=== PATIENT | male | born 1965 | race Caucasian/White ===

== ENCOUNTER 2017-09-04 13:47 | Observation (INO) | payer BC ==
[2017-09-04] MEDS ORDERED: ASPIRIN 81 MG PO STA (14:14)
[2017-09-04] MEDS ORDERED: NITROGLYCERIN OINT 1 INCH/GM PACKET TOPICAL STA (14:14)
--- NOTE | 2017-09-04 14:17 | ED ---
Chest Pain HPI - General Chief Complaint: Chest Pain Stated Complaint: Chest Pain Time Seen by Provider: 09/04/17 14:07 Source: patient Mode of arrival: wheelchair Limitations: no limitations - History of Present Illness Initial Comments: 1-year-old white male presents with a complaint of some midsternal chest pain which is described as a burning which is nonradiating. He states that it initially started 2-3 weeks ago. It is been intermittent and comes on with exertion and is better with rest. He denies any previous cardiac problems. He is had occasional palpitations. He will have occasional shortness of breath associated with the chest pain. He denies any leg pain or swelling. He denies any history of DVT or PE. His last stress test was approximate 6 years ago. His last echocardiogram was approximately 2 years ago and he states that he has a leaky valve. He denies any other complaints or modifying factors. He states that he quit smoking approximately 2 weeks ago when this came on. He also complains of some anxiety as his father 3 weeks ago. He does not take anything at home for anxiety. He also relates a strong family history of cardiac disease with his grandfather having a myocardial infarction before the age of 55. - Related Data Home Medications Medication Instructions Recorded Confirmed Lisinopril [Zestril] 10 mg PO DAILY 03/04/16 09/04/17 Allergies Allergy/AdvReac Type Severity Reaction Status Date / Time No Known Allergies Allergy Verified 09/04/17 14:44 Review of Systems ROS Statement: Those systems with pertinent positive or pertinent negative responses have been documented in the HPI. ROS Other: All systems not noted in ROS Statement are negative. Past Medical History Past Medical History: Hypertension History of Any Multi-Drug Resistant Organisms: None Reported Past Surgical History: Orthopedic Surgery Additional Past Surgical History / Comment(s): Left knee surgery; Oral surgery Past Psychological History: No Psychological Hx Reported Smoking Status: Current every day smoker Past Alcohol Use History: Occasional Past Drug Use History: None Reported General Exam - General Exam Comments Initial Comments: GENERAL: The patient is well nourished and well hydrated. VITAL SIGNS: Heart rate, blood pressure, respiratory rate reviewed as recorded in nurse's notes. EYES: Pupils are round and reactive. Extraocular movements are intact. No conjunctival / lid redness or swelling. ENT: No external evidence of injury, swelling, or ecchymosis. Airway is patent. Throat is clear. NECK: Nontender. No swelling or evidence of injury. No subcutaneous emphysema. Trachea is midline. No thyroid mass. HEART: Regular rate and rhythm. Good peripheral pulses. LUNGS/CHEST: Breath sounds clear and equal bilaterally. No rales, rhonchi, or wheezes. No ecchymosis, subcutaneous emphysema, or tenderness. ABDOMEN: Abdomen soft without tenderness. No palpable masses or organomegaly. No peritoneal signs. No abdominal wall swelling or ecchymosis. EXTREMITIES: No extremity tenderness. Normal muscle tone and function. No thoracolumbar tenderness. NEUROLOGIC: Sensation is grossly intact. Cranial nerve exam reveals face is symmetrical, tongue is midline, speech is clear. SKIN: No abrasions or ecchymosis is noted. No induration or masses noted. PSYCHIATRIC: Alert and oriented. Appropriate behavior and judgment. Limitations: no limitations Course Vital Signs 09/04/17 14:02 Temperature 98.5 F Pulse Rate 73 Respiratory 16 Rate Blood Pressure 156/96 O2 Sat by Pulse 99 Oximetry Chest Pain [facility] - MDM The patient was seen and examined. All diagnostics are reviewed. He does receive an aspirin as well as some Nitropaste. The EKG is done and shows a normal sinus rhythm at a rate of 67. There is no acute ST-T wave changes noted. The NM intervals 146, QRS duration is 86, and the QTC intervals 450. The chest x-ray does not show any acute abnormalities. The cardiac profile labs is all within normal limits. He is not having any chest pain on recheck. It is felt as though he would benefit from admission to the hospital for further treatment. He is agreeable with this plan. He does request something for anxiety and is given 0.5 mg of Xanax. Case will be discussed with Dr. Bueno in the near future. Disposition Clinical Impression: Unstable angina pectoris, Chest pain, Hypertension, Anxiety Disposition: ADMITTED IP TO THIS HOSP Condition: Fair Is patient prescribed a controlled substance at d/c from ED?: No Time of Disposition: 15:32 Decision Date: 09/04/17 Decision Time: 15:32
[2017-09-04 14:45] LABS: Basophils # (A) 0.1 k/uL (0-0.2); Basophils % (A) 1 %; Eosinophils # (A) 0.3 k/uL (0-0.7); Eosinophils % (A) 3 %; HCT 43.8 % (39.0-53.0); Lymphocytes % (A) 21 %; MCH 29.8 pg (25.0-35.0); MCHC 34.2 g/dL (31.0-37.0); MCV 87.1 fL (80.0-100.0); Mean Platelet Volume 7.2; Monocytes # (A) 0.5 k/uL (0-1.0); Monocytes % (A) 5 %; Neutrophils # (A) 6.6 k/uL (1.3-7.7); Neutrophils % (A) 69 %; Platelet Count 253 k/uL (150-450); RBC 5.03 m/uL (4.30-5.90); RDW 13.2 % (11.5-15.5); WBC 9.5 k/uL (3.8-10.6)
[2017-09-04 14:58] LABS: ALT 58 U/L (21-72); AST 28 U/L (17-59); Albumin 4.8 g/dL (3.5-5.0); Alkaline Phosphatase 67 U/L (38-126); Anion Gap 12 mmol/L; Blood Urea Nitrogen 13 mg/dL (9-20); Carbon Dioxide 24 mmol/L (22-30); Chloride 103 mmol/L (98-107); Glucose 99 mg/dL (74-99); Magnesium 1.9 mg/dL (1.6-2.3); Potassium 4.5 mmol/L (3.5-5.1); Sodium 139 mmol/L (137-145); Total Bilirubin 0.6 mg/dL (0.2-1.3); Total Protein 7.6 g/dL (6.3-8.2)
[2017-09-04 15:01] LABS: Partial Thromboplastin Time 22.8 sec (22.0-30.0); Prothrombin Time 9.8 sec (9.0-12.0)
[2017-09-04 15:04] LABS: Creatine Kinase 63 U/L (55-170)
[2017-09-04 15:17] LABS: Creatine Kinase MB 0.6 ng/mL (0.0-2.4); Troponin I <0.012 ng/mL (0.000-0.034)
--- NOTE | 2017-09-04 15:17 | XR ---
EXAMINATION TYPE: XR chest 2V DATE OF EXAM: 09/04/2017 COMPARISON: NONE INDICATION: Chest pain TECHNIQUE: Frontal and lateral views of the chest are obtained. FINDINGS: The heart size is normal. The pulmonary vasculature is normal. The lungs are clear. Old left rib fractures evident. IMPRESSION: 1. No acute pulmonary process.
[2017-09-04] MEDS ORDERED: ALPRAZolam 0.5 MG TAB PO STA (15:30)
[2017-09-04] MEDS ORDERED: NITROGLYCERIN SL TABS 0.4 MG TAB SUBLINGUAL PRN (15:32)
[2017-09-04] MEDS ORDERED: ALPRAZolam 0.25 MG TAB PO PRN (15:32)
[2017-09-04 16:54] VITALS: BMI 28.1
[2017-09-04] MEDS: NITROGLYCERIN OINT 1 INCH/GM PACKET TOPICAL SCH ×2 (18:52→23:06)
[2017-09-04 20:55] LABS: Creatine Kinase 44 U/L (55-170)
[2017-09-04] MEDS ORDERED: METOPROLOL TARTRATE 25 MG TAB PO SCH (21:00)
[2017-09-04 21:08] LABS: Creatine Kinase MB 0.3 ng/mL (0.0-2.4); Troponin I <0.012 ng/mL (0.000-0.034)
[2017-09-05 03:01] LABS: Cholesterol 197 mg/dL (<200); HDL Cholesterol 34 mg/dL (40-60); LDL Cholesterol,Calculated 116 mg/dL (0-99); Triglycerides 234 mg/dL (<150)
[2017-09-05 03:24] LABS: Creatine Kinase 41 U/L (55-170)
[2017-09-05 03:38] LABS: Creatine Kinase MB 0.3 ng/mL (0.0-2.4); Troponin I <0.012 ng/mL (0.000-0.034)
[2017-09-05 08:10] VITALS: RESP 18
[2017-09-05] MEDS ORDERED: ENOXAPARIN 40 MG/0.4 ML SYRINGE SQ SCH (09:00)
[2017-09-05] MEDS ORDERED: LISINOPRIL 10 MG TAB PO SCH (09:00)
[2017-09-05] MEDS ORDERED: ASPIRIN 325 MG TAB PO SCH (09:00)
[2017-09-05] MEDS ORDERED: ASPIRIN 81 MG PO SCH (09:00)
--- NOTE | 2017-09-05 12:07 | P.HPIM ---
History of Present Illness 50-year-old male presented in the emergency room with complaints of chest discomfort. 2 weeks ago's stated he was chopping wood developed some chest pressure that was relieved with rest. Family history of coronary disease with sudden of his father recently. Patient states chest pain was burning in sensation nonradiating no nausea or diaphoresis. Troponins up a negative 3. Review of Systems Cardiovascular: Reports chest pain Neurological: Reports vertigo Past Medical History Past Medical History: Hypertension History of Any Multi-Drug Resistant Organisms: None Reported Past Surgical History: Orthopedic Surgery Additional Past Surgical History / Comment(s): Left and right knee surgery; Oral surgery Past Anesthesia/Blood Transfusion Reactions: No Reported Reaction Past Psychological History: No Psychological Hx Reported Additional Psychological History / Comment(s): anxiety from father passing away Smoking Status: Former smoker Past Alcohol Use History: Occasional Additional Past Alcohol Use History / Comment(s): pt quit smoking 2-3 weeks ago Past Drug Use History: None Reported Medications and Allergies Home Medications Medication Instructions Recorded Confirmed Type Lisinopril [Zestril] 10 mg PO DAILY 03/04/16 09/04/17 History Allergies Allergy/AdvReac Type Severity Reaction Status Date / Time No Known Allergies Allergy Verified 09/04/17 14:44 Physical Exam Vitals: Vital Signs Temp Pulse Pulse Pulse Resp BP BP 09/05/17 08:00 97.5 F L 67 18 98/56 09/05/17 04:00 97.0 F L 75 16 110/61 09/05/17 00:00 97.7 F 60 18 130/67 09/04/17 20:00 97.5 F L 67 135/73 09/04/17 19:36 18 09/04/17 16:24 98.2 F 54 L 18 140/75 09/04/17 16:00 54 L 18 09/04/17 15:50 72 16 151/93 09/04/17 15:00 64 16 155/91 09/04/17 14:02 98.5 F 73 16 156/96 Pulse Ox 09/05/17 08:00 97 09/05/17 04:00 97 09/05/17 00:00 97 09/04/17 20:00 96 09/04/17 19:36 09/04/17 16:24 96 09/04/17 16:00 09/04/17 15:50 97 09/04/17 15:00 99 09/04/17 14:02 99 Intake and Output 09/04/17 09/05/17 09/05/17 22:59 06:59 14:59 Intake Total 400 Balance 400 Intake: Oral 400 Other: Voiding Method Toilet Toilet Toilet # Voids 1 1 Weight 94.1 kg 93.894 kg - Constitutional General appearance: obese - EENT Eyes: PERRLA Ears: bilateral: normal - Neck Neck: normal ROM - Respiratory Respiratory: bilateral: CTA - Cardiovascular Rhythm: regular Abnormal Heart Sounds: systolic murmur - Gastrointestinal General gastrointestinal: soft - Integumentary Integumentary: normal - Neurologic Neurologic: CNII-XII intact - Musculoskeletal Musculoskeletal: gait normal - Psychiatric Psychiatric: A&O x's 3, appropriate affect Results CBC & Chem 7: 09/04/17 14:30 09/04/17 14:30 Labs: Abnormal Lab Results - Last 24 Hours (Table) 09/04/17 09/05/17 09/05/17 Range/Units 20:22 02:23 02:23 Total Creatine Kinase 44 L 41 L (55-170) U/L Triglycerides 234 H (<150) mg/dL LDL Cholesterol, Calc 116 H (0-99) mg/dL HDL Cholesterol 34 L (40-60) mg/dL Chest x-ray: report reviewed Thrombosis Risk Factor Assmnt - Choose All That Apply Any of the Below Risk Factors Present?: Yes Each Factor Represents 1 point: Age 41-60 years, Obesity (BMI >25) Other Risk Factors: No Thrombosis Risk Factor Assessment Total Risk Factor Score: 2 Thrombosis Risk Factor Assessment Level: Low Risk Assessment and Plan Assessment: Assessment Unstable angina chest pain troponins negative 3 Hypertension Anxiety disorder Plan Awaiting results from stress test and echo Continue consultation with cardiology
--- NOTE | 2017-09-05 12:10 | P.CRDCN ---
History of Present Illness History of present illness: Mr. Aguila male past medical history significant for hypertension and vasovagal syncope. He also has a history of chronic nicotine dependence and he quit 2 weeks ago. He denies history of coronary artery disease. He states he had symptoms of dizziness approximately 17 years ago and was worked up by market risk analyst at [facility] and was determined to have vasovagal syncope. He did undergo stress testing at that time which he states was normal. We've been asked to see him in consultation for complaints of chest pain. He states 2 weeks ago he had an episode of tightness in the mid-sternal region with shortness of breath and dizziness that lasted approximately 15 minutes. The symptoms started when he was exerting himself and seemed to subside with rest. Since then he has felt increasingly dizzy with mild exertion. Denies palpitations, nausea, vomiting, diaphoresis or any further symptoms of chest pain or shortness of breath. At the time of my exam he is seen up and ambulating around the room in no acute distress. He denies symptoms of chest pain, dizziness, nausea, vomiting, palpitations or shortness of breath. EKG on arrival reveals sinus mechanism with no acute ST or T-wave abnormalities. Chest x-ray is negative for an acute cardiopulmonary process. Laboratory data reviewed, hemoglobin 15.0, platelets 253, sodium 139, potassium 4.5, creatinine 0.8, magnesium 1.9, cardiac enzymes negative 3, LDL 116, HDL 34 , triglycerides 234 and total cholesterol 197. Current medications include lisinopril 10 mg daily. Review of Systems At the time of my exam: CONSTITUTIONAL: Denies fever. Denies chills. EYES: Denies blurred vision. Denies vision changes. Denies eye pain. EARS, NOSE, MOUTH & THROAT: Denies headache. Denies sore throat. Denies ear pain. CARDIOVASCULAR: Denies chest pain. Denies shortness of breath. Denies orthopnea. Denies PND. Denies palpitations. RESPIRATORY: Denies cough. GASTROINTESTINAL: Denies abdominal pain. Denies diarrhea. Denies constipation. Denies nausea. Denies vomiting. MUSCULOSKELETAL: Denies myalgias. INTEGUMENTARY: Denies pruitis. Denies rash. NEUROLOGIC: Denies numbness. Denies tingling. Denies weakness. PSYCHIATRIC: Denies anxiety. Denies depression. ENDOCRINE: Denies fatigue. Denies weight change. Denies polydipsia. Denies polyurina. GENITOURINARY: Denies burning, hematuria or urgency with micturation. HEMATOLOGIC: Denies history of anemia. Denies bleeding. Past Medical History Past Medical History: Hypertension History of Any Multi-Drug Resistant Organisms: None Reported Past Surgical History: Orthopedic Surgery Additional Past Surgical History / Comment(s): Left and right knee surgery; Oral surgery Past Anesthesia/Blood Transfusion Reactions: No Reported Reaction Past Psychological History: No Psychological Hx Reported Additional Psychological History / Comment(s): anxiety from father passing away Smoking Status: Former smoker Past Alcohol Use History: Occasional Additional Past Alcohol Use History / Comment(s): pt quit smoking 2-3 weeks ago Past Drug Use History: None Reported Medications and Allergies Home Medications Medication Instructions Recorded Confirmed Type Lisinopril [Zestril] 10 mg PO DAILY 03/04/16 09/04/17 History Allergies Allergy/AdvReac Type Severity Reaction Status Date / Time No Known Allergies Allergy Verified 09/04/17 14:44 Physical Exam Vitals: Vital Signs Temp Pulse Pulse Pulse Resp BP BP 09/05/17 08:00 97.5 F L 67 18 98/56 09/05/17 04:00 97.0 F L 75 16 110/61 09/05/17 00:00 97.7 F 60 18 130/67 09/04/17 20:00 97.5 F L 67 135/73 09/04/17 19:36 18 09/04/17 16:24 98.2 F 54 L 18 140/75 09/04/17 16:00 54 L 18 09/04/17 15:50 72 16 151/93 09/04/17 15:00 64 16 155/91 09/04/17 14:02 98.5 F 73 16 156/96 Pulse Ox 09/05/17 08:00 97 09/05/17 04:00 97 09/05/17 00:00 97 09/04/17 20:00 96 09/04/17 19:36 09/04/17 16:24 96 09/04/17 16:00 09/04/17 15:50 97 09/04/17 15:00 99 09/04/17 14:02 99 Intake and Output 09/04/17 09/05/17 09/05/17 22:59 06:59 14:59 Intake Total 400 Balance 400 Intake: Oral 400 Other: Voiding Method Toilet Toilet # Voids 1 1 Weight 94.1 kg Blood pressure 98/56 heart rate 67 afebrile maintaining oxygen saturation on room air GENERAL: This is a 51-year-old male in no apparent distress at the time of my examination. HEENT: Head is atraumatic, normocephalic. Pupils are equal, round. Sclerae anicteric. Conjunctivae are clear. Mucous membranes of the mouth are moist. Neck is supple. There is no jugular venous distention. No carotid bruit is heard. LUNGS: Clear to auscultation no wheezes, rales or rhonchi. No chest wall tenderness is noted on palpation or with deep breathing. HEART: Regular rate and rhythm without murmurs, rubs or gallops. S1 and S2 heard. ABDOMEN: Soft, nontender. Bowel sounds are heard. No organomegaly noted. EXTREMITIES: No evidence of peripheral edema and no calf tenderness noted. VASCULAR: Radial and dorsalis pedis pulses palpated, no evidence of clubbing. NEUROLOGIC: Patient is awake, alert and oriented x3. Results 09/04/17 14:30 09/04/17 14:30 Cardiac Enzymes 09/04/17 09/04/17 09/04/17 Range/Units 14:30 14:30 20:22 AST 28 (17-59) U/L CK-MB (CK-2) 0.6 0.3 (0.0-2.4) ng/mL Troponin I <0.012 <0.012 (0.000-0.034) ng/mL 09/05/17 Range/Units 02:23 AST (17-59) U/L CK-MB (CK-2) 0.3 (0.0-2.4) ng/mL Troponin I <0.012 (0.000-0.034) ng/mL Coagulation 09/04/17 Range/Units 14:30 PT 9.8 (9.0-12.0) sec APTT 22.8 (22.0-30.0) sec Lipids 09/05/17 Range/Units 02:23 Triglycerides 234 H (<150) mg/dL Cholesterol 197 (<200) mg/dL HDL Cholesterol 34 L (40-60) mg/dL CBC 09/04/17 Range/Units 14:30 WBC 9.5 (3.8-10.6) k/uL RBC 5.03 (4.30-5.90) m/uL Hgb 15.0 (13.0-17.5) gm/dL Hct 43.8 (39.0-53.0) % Plt Count 253 (150-450) k/uL Comprehensive Metabolic Panel 09/04/17 Range/Units 14:30 Sodium 139 (137-145) mmol/L Potassium 4.5 (3.5-5.1) mmol/L Chloride 103 (98-107) mmol/L Carbon Dioxide 24 (22-30) mmol/L BUN 13 (9-20) mg/dL Creatinine 0.80 (0.66-1.25) mg/dL Glucose 99 (74-99) mg/dL Calcium 10.0 (8.4-10.2) mg/dL AST 28 (17-59) U/L ALT 58 (21-72) U/L Alkaline Phosphatase 67 (38-126) U/L Total Protein 7.6 (6.3-8.2) g/dL Albumin 4.8 (3.5-5.0) g/dL Current Medications Generic Name Dose Route Start Last Admin Trade Name Freq PRN Reason Stop Dose Admin Alprazolam 0.25 mg 09/04/17 15:32 09/04/17 19:47 Xanax PO 0.25 mg QID PRN Administration Anxiety Aspirin 81 mg 09/05/17 09:00 Aspirin PO DAILY [facility] Enoxaparin Sodium 40 mg 09/05/17 09:00 Lovenox SQ DAILY MODE Lisinopril 10 mg 09/05/17 09:00 Zestril PO DAILY MODE Nitroglycerin 1 inch 09/04/17 18:00 09/04/17 23:06 Nitro-Bid Oint TOPICAL Not Given Q6HR MODE Nitroglycerin 0.4 mg 09/04/17 15:32 Nitrostat SUBLINGUAL Q5M PRN Chest Pain Intake and Output 09/04/17 09/05/17 09/05/17 22:59 06:59 14:59 Intake Total 400 Balance 400 Intake: Oral 400 Other: Voiding Method Toilet Toilet # Voids 1 1 Weight 94.1 kg 09/04/17 14:30 09/04/17 14:30 Assessment and Plan Assessment: ASSESSMENT 1. Chest pain, atypical. An acute coronary event has been ruled out with no EKG evidence of ischemia and normal cardiac enzymes. 2. Hypertension 3. Dyslipidemia 4. Chronic nicotine dependence PLAN Obtain 2-D echocardiogram and Doppler study to assess cardiac structure and function. Perform stress echocardiogram to assess for stress induced cardiac ischemia. Add atorvastatin 40 mg daily and aspirin 81 mg daily to his regimen. He feels as though he is intolerant to lisinopril and has had frequent palpitations since starting over a year ago. I will change him to lorsartan 25 mg daily. Follow-up liver enzymes in 2-3 weeks. Smoking cessation recommended, he states he quit smoking 2 weeks ago after having his initial symptoms of chest discomfort. Lifestyle modifications for weight loss and lowering of cholesterol. If stress test is normal he is stable from a cardiac perspective. Follow-up with Dr. Worthington in 2-3 weeks. Thank you kindly for this consultation. Nurse Practitioner note has been reviewed, I agree with a documented findings and plan of care. Patient was seen and examined.
[2017-09-05 12:13] VITALS: BP 100/59; PULSE 77; TEMP 98
[2017-09-05] MEDS ORDERED: ATORVASTATIN 40 MG TAB PO SCH (12:15)
[2017-09-05] MEDS: NITROGLYCERIN OINT 1 INCH/GM PACKET TOPICAL SCH (12:40)
--- NOTE | 2017-09-05 13:25 | P.STRESS ---
- Stress Test Note Stress Test Results/Findings: Exam Performed: stress echo exercise Exam Date: 09/05/17 Reason for Exam: CHEST PAIN Height: 6 ft Weight: 93.894 kg Protocol: MAURICIO Stage: 3 Duration of Exercise: 9:00 Resting Heart Rate: 64 Resting Blood Pressure: 107/50 Maximum Achieved Heart Rate: 145 Maximum Achieved Blood Pressure: 171/75 85% PMHR: 142 100% PMHR: 167 METS: 10.3 Technologist Comment: Stress Test Results/Findings: This is a 51-year-old gentleman with history of hypertension and smoking being evaluated for symptoms of chest pain or shortness of breath and also palpitations. Stress data: Baseline EKG showed sinus rhythm with normal MO interval, QRS duration. Blood pressure at rest his hand several 50 with pulse rate of 64. Patient walked on the Mauricio protocol for 9 minutes achieving a max moderate of 145 with blood pressure 170/75. EKGs taken during and after the x-ray did not reveal any significant changes from the baseline. Echo data: Baseline echo images show normal wall motion and thickening. Exercise echo images showed normal augmentation of wall motion and thickening in all segments. Final impression: #1. Negative stress test #2. Negative stress echo.
--- NOTE | 2017-09-05 14:33 | P.DS ---
Providers Date of admission: 09/04/17 15:33 Expected date of discharge: 09/05/17 Attending physician: Beto Bueno Consults: 09/04/17 15:33 Consult Physician Urgent Consulting Provider: Jose Wadsworth Consult Reason/Comments: cp Do you want consulting provider notified?: Yes Primary care physician: Beto Bueno [facility] Course: 51-year-old males of the to the emergency room with complaints of chest pain. Patient was evaluated by cardiology sent to have negative echo negative stress test. Patient is be discharge to follow up with family physician Dr. Beto Bueno and cardiology. Troponins negative times three Assessment chest pain troponins negative times three data stress tests hypertension anxiety disorder Plan up with family physician and cardiology Patient Condition at Discharge: Fair Plan - Discharge Summary Discharge Rx Participant: Yes New Discharge Prescriptions: New Aspirin 81 mg PO DAILY chew Atorvastatin [Lipitor] 40 mg PO DAILY #30 tab Losartan [Cozaar] 25 mg PO DAILY #30 tab Discontinued Lisinopril [Zestril] 10 mg PO DAILY Discharge Medication List Aspirin 81 mg PO DAILY chew 09/05/17 [Rx] Atorvastatin [Lipitor] 40 mg PO DAILY #30 tab 09/05/17 [Rx] Losartan [Cozaar] 25 mg PO DAILY #30 tab 09/05/17 [Rx] Follow up Appointment(s)/Referral(s): Carey Worthington MD [STAFF PHYSICIAN] - 2 Weeks (Office will call patient at home. ) Ambulatory/Diagnostic Orders: ALT [LAB.AMB] Location: Determined By Patient AST [LAB.AMB] Location: Determined By Patient
[2017-09-06] MEDS ORDERED: LOSARTAN 25 MG TAB PO SCH (09:00)
--- NOTE | 2017-09-06 14:00 | ECHOF ---
Referral Reason:cp MEASUREMENTS -------- HEIGHT: 182.9 cm WEIGHT: 93.9 kg BP: 110/61 RVIDd: 3.2 cm (< 3.3) IVSd: 1.3 cm (0.6 - 1.1) LVIDd: 4.0 cm (3.9 - 5.3) LVPWd: 1.2 cm (0.6 - 1.1) IVSs: 1.5 cm LVIDs: 3.0 cm LVPWs: 1.6 cm LA Diam: 3.6 cm (2.7 - 3.8) LAESV Index (A-L): 31.14 ml/m Ao Diam: 3.2 cm (2.0 - 3.7) AV Cusp: 2.1 cm (1.5 - 2.6) LA Diam: 4.2 cm (2.7 - 3.8) MV EXCURSION: 24.208 mm (> 18.000) MV EF SLOPE: 107 mm/s (70 - 150) EPSS: 0.3 cm MV E Napoleon: 0.66 m/s MV DecT: 164 ms MV A Napoleon: 0.56 m/s MV E/A Ratio: 1.17 RAP: 5.00 mmHg RVSP: 24.97 mmHg FINDINGS -------- Sinus rhythm. This was a technically good study. The left ventricular size is normal. There is mild concentric left ventricular hypertrophy. Overa ll left ventricular systolic function is low-normal with, an EF between 50 - 55 %. The right ventricle is normal in size. The left atrial size is normal. LA is midly dilated 29-33ml/m2. The right atrial size is normal. The aortic valve is trileaflet, and appears structurally normal. No aortic stenosis or regurgitation. Mild mitral regurgitation is present. Mild tricuspid regurgitation present. There is no evidence of pulmonary hypertension. The right v entricular systolic pressure, as measured by Doppler, is 24.97mmHg. There is no pulmonic regurgitation present. The aortic root size is normal. There is no pericardial effusion. CONCLUSIONS -------- 1. The left ventricular size is normal. 2. There is mild concentric left ventricular hypertrophy. 3. Overall left ventricular systolic function is low-normal with, an EF between 50 - 55 %. 4. The right ventricle is normal in size. 5. The left atrial size is normal. 6. LA is midly dilated 29-33ml/m2. 7. The right atrial size is normal. 8. The aortic valve is trileaflet, and appears structurally normal. No aortic stenosis or regurgitati on. 9. Mild mitral regurgitation is present. 10. Mild tricuspid regurgitation present. 11. There is no evidence of pulmonary hypertension. 12. The right ventricular systolic pressure, as measured by Doppler, is 24.97mmHg. 13. There is no pulmonic regurgitation present. 14. The aortic root size is normal. 15. There is no pericardial effusion. PERMIT COORDINATOR: Christina Fraser RDCS
--- NOTE | 2017-09-09 15:34 | ECHOS ---
Stress Test Results/Findings: Exam Performed: stress echo exercise Exam Date: 09/05/17 Reason for Exam: CHEST PAIN Height: 6 ft Weight: 93.894 kg Protocol: MAURICIO Stage: 3 Duration of Exercise: 9:00 Resting Heart Rate: 64 Resting Blood Pressure: 107/50 Maximum Achieved Heart Rate: 145 Maximum Achieved Blood Pressure: 171/75 85% PMHR: 142 100% PMHR: 167 METS: 10.3 Technologist Comment: Stress Test Results/Findings: This is a 51-year-old gentleman with history of hypertension and smoking being evaluated for symptoms of chest pain or shortness of breath and also palpitations. Stress data: Baseline EKG showed sinus rhythm with normal MS interval, QRS duration. Blood pressure at rest his hand several 50 with pulse rate of 64. Patient walked on the Mauricio protocol for 9 minutes achieving a max moderate of 145 with blood pressure 170/75. EKGs taken during and after the x-ray did not reveal any significant changes from the baseline. Echo data: Baseline echo images show normal wall motion and thickening. Exercise echo images showed normal augmentation of wall motion and thickening in all segments. Final impression: #1. Negative stress test #2. Negative stress echo. GEORGE
== END 2017-09-05 14:45 | disposition home or self-care (01) ==
LOC: EC 13:47 → 3OBS 15:33
PROVIDERS: ADMIT Family Medicine; ATTEND Family Medicine
DX: R07.89 Other chest pain (principal); I10 Essential (primary) hypertension; F41.9 Anxiety disorder, unspecified; E78.5 Hyperlipidemia, unspecified; F17.200 Nicotine dependence, unspecified, uncomplicated; E66.9 Obesity, unspecified; Z68.28 Body mass index [BMI] 28.0-28.9, adult; Z79.899 Other long term (current) drug therapy; Z82.49 Family history of ischemic heart disease and other diseases of the circulatory system
CPT/HCPCS: 99285 ×2; 36415; 93005; 93306; 93351; 80061; 80053; 82550 ×2; 82553 ×2; 83735; 84484 ×2; 85025; 85610; 85730; 71046; G0378 ×2

== ENCOUNTER 2017-12-28 10:22 | Emergency (ER) | payer BC ==
[2017-12-28 10:28] VITALS: TEMP 98.3
[2017-12-28] MEDS ORDERED: LORazepam 2 MG/ML INJ IV STA (10:46)
[2017-12-28] MEDS ORDERED: SODIUM CHLORIDE 0.9% 500 ML 500 ML IV STA (10:46)
--- NOTE | 2017-12-28 10:52 | ED ---
General Adult HPI - General Chief complaint: Arrhythmia/Palpitations Stated complaint: possible drug interactions Time Seen by Provider: 12/28/17 10:25 Source: patient, RN notes reviewed Mode of arrival: ambulatory Limitations: no limitations - History of Present Illness Initial comments: This is a 52-year-old male who presents emergency department with past medical history significant for high blood pressure and anxiety. Patient states for the last week he has had a lot of anxiety and he feels and he has had episodes of palpitations. Patient states she's been also little bit lightheaded on occasion. Patient states she's had no chest pain is not short of breath and he said no difficulty breathing. Patient states she stopped his current blood pressure medicine one week ago started lisinopril on his own without telling his physician. Patient is worried that that may not above the right thing to do and it got his anxiety worked up. Patient is requesting me to give him anxiety medicine multiple times during our interview. Patient denies any abdominal pain patient denies any fever chills or cough. Patient denies any vomiting or diarrhea. Patient denies any headache patient denies any near syncopal episodes. - Related Data Home Medications Medication Instructions Recorded Confirmed L.acidoph,Paracasei, B.lactis 1 cap PO DAILY 12/28/17 12/28/17 [Probiotic] Lisinopril [Zestril] 10 mg PO DAILY 12/28/17 12/28/17 Teddy Red 1 tab PO DAILY 12/28/17 12/28/17 Previous Rx's Medication Instructions Recorded ALPRAZolam [Xanax] 0.5 mg PO BID PRN #6 tablet 12/28/17 Allergies Allergy/AdvReac Type Severity Reaction Status Date / Time No Known Allergies Allergy Verified 12/28/17 10:52 Review of Systems ROS Statement: Those systems with pertinent positive or pertinent negative responses have been documented in the HPI. ROS Other: All systems not noted in ROS Statement are negative. Past Medical History Past Medical History: Hypertension History of Any Multi-Drug Resistant Organisms: None Reported Past Surgical History: Orthopedic Surgery Additional Past Surgical History / Comment(s): Left and right knee surgery; Oral surgery Past Anesthesia/Blood Transfusion Reactions: No Reported Reaction Past Psychological History: No Psychological Hx Reported Smoking Status: Former smoker Past Alcohol Use History: Occasional Past Drug Use History: None Reported General Exam - General Exam Comments Initial Comments: GENERAL: Patient is well-developed and well-nourished. Patient is nontoxic and well- hydrated and is in no acute distress but appears very anxious ENT: Neck is soft and supple. No significant lymphadenopathy is noted. Oropharynx is clear. Moist mucous membranes. Neck has full range of motion without eliciting any pain. EYES: The sclera were anicteric and conjunctiva were pink and moist. Extraocular movements were intact and pupils were equal round and reactive to light. Eyelids were unremarkable. PULMONARY: Unlabored respirations. Good breath sounds bilaterally. No audible rales rhonchi or wheezing was noted. CARDIOVASCULAR: There is a regular rate and rhythm without any murmurs gallops or rubs. ABDOMEN: Soft and nontender with normal bowel sounds. No palpable organomegaly was noted. There is no palpable pulsatile mass. SKIN: Skin is clear with no lesions or rashes and otherwise unremarkable. NEUROLOGIC: Patient is alert and oriented x3. Cranial nerves II through XII are grossly intact. Motor and sensory are also intact. Normal speech, volume and content. Symmetrical smile. MUSCULOSKELETAL: Normal extremities with adequate strength and full range of motion. No lower extremity swelling or edema. No calf tenderness. LYMPHATICS: No significant lymphadenopathy is noted PSYCHIATRIC: Patient is anxious and asking for anxiety medications times throughout my interview. Limitations: no limitations Course Vital Signs 12/28/17 10:25 Temperature 98.3 F Pulse Rate 104 H Respiratory 16 Rate Blood Pressure 142/92 O2 Sat by Pulse 100 Oximetry Medical Decision Making - Medical Decision Making EKG shows normal sinus rhythm at 69 bpm OH interval is on a 48 QRSs 84 Q-T intervals 4:30 QTC is 460. Patient's EKG shows no ST segment elevation or depression or T wave abnormalities are noted. Patient's chest x-ray shows no acute abnormality. Patient was much more relaxed after Ativan. - Lab Data Result diagrams: 12/28/17 11:00 12/28/17 11:00 Lab Results 12/28/17 12/28/17 12/28/17 Range/Units 11:00 11:00 11:00 WBC 7.8 (3.8-10.6) k/uL RBC 4.92 (4.30-5.90) m/uL Hgb 14.4 (13.0-17.5) gm/dL Hct 44.0 (39.0-53.0) % MCV 89.4 (80.0-100.0) fL MCH 29.3 (25.0-35.0) pg MCHC 32.8 (31.0-37.0) g/dL RDW 13.0 (11.5-15.5) % Plt Count 242 (150-450) k/uL Neutrophils % 64 % Lymphocytes % 26 % Monocytes % 5 % Eosinophils % 3 % Basophils % 0 % Neutrophils # 5.0 (1.3-7.7) k/uL Lymphocytes # 2.1 (1.0-4.8) k/uL Monocytes # 0.4 (0-1.0) k/uL Eosinophils # 0.2 (0-0.7) k/uL Basophils # 0.0 (0-0.2) k/uL PT (9.0-12.0) sec INR (<1.2) APTT (22.0-30.0) sec Sodium 141 (137-145) mmol/L Potassium 4.4 (3.5-5.1) mmol/L Chloride 107 (98-107) mmol/L Carbon Dioxide 25 (22-30) mmol/L Anion Gap 9 mmol/L BUN 14 (9-20) mg/dL Creatinine 0.88 (0.66-1.25) mg/dL Est GFR (CKD-EPI)AfAm >90 (>60 ml/min/1.73 sqM) Est GFR (CKD-EPI)NonAf >90 (>60 ml/min/1.73 sqM) Glucose 99 (74-99) mg/dL Calcium 9.8 (8.4-10.2) mg/dL Magnesium 1.9 (1.6-2.3) mg/dL Total Bilirubin 0.7 (0.2-1.3) mg/dL AST 29 (17-59) U/L ALT 59 (21-72) U/L Alkaline Phosphatase 62 (38-126) U/L Total Creatine Kinase 60 (55-170) U/L CK-MB (CK-2) 0.5 (0.0-2.4) ng/mL CK-MB (CK-2) Rel Index 0.8 Troponin I <0.012 (0.000-0.034) ng/mL Total Protein 7.5 (6.3-8.2) g/dL Albumin 4.4 (3.5-5.0) g/dL Urine Opiates Screen (NotDetected) Ur Oxycodone Screen (NotDetected) Urine Methadone Screen (NotDetected) Ur Propoxyphene Screen (NotDetected) Ur Barbiturates Screen (NotDetected) U Tricyclic Antidepress (NotDetected) Ur Phencyclidine Scrn (NotDetected) Ur Amphetamines Screen (NotDetected) U Methamphetamines Scrn (NotDetected) U Benzodiazepines Scrn (NotDetected) Urine Cocaine Screen (NotDetected) U Marijuana (THC) Screen (NotDetected) 12/28/17 12/28/17 Range/Units 11:00 11:40 WBC (3.8-10.6) k/uL RBC (4.30-5.90) m/uL Hgb (13.0-17.5) gm/dL Hct (39.0-53.0) % MCV (80.0-100.0) fL MCH (25.0-35.0) pg MCHC (31.0-37.0) g/dL RDW (11.5-15.5) % Plt Count (150-450) k/uL Neutrophils % % Lymphocytes % % Monocytes % % Eosinophils % % Basophils % % Neutrophils # (1.3-7.7) k/uL Lymphocytes # (1.0-4.8) k/uL Monocytes # (0-1.0) k/uL Eosinophils # (0-0.7) k/uL Basophils # (0-0.2) k/uL PT 10.1 (9.0-12.0) sec INR 1.0 (<1.2) APTT 22.8 (22.0-30.0) sec Sodium (137-145) mmol/L Potassium (3.5-5.1) mmol/L Chloride (98-107) mmol/L Carbon Dioxide (22-30) mmol/L Anion Gap mmol/L BUN (9-20) mg/dL Creatinine (0.66-1.25) mg/dL Est GFR (CKD-EPI)AfAm (>60 ml/min/1.73 sqM) Est GFR (CKD-EPI)NonAf (>60 ml/min/1.73 sqM) Glucose (74-99) mg/dL Calcium (8.4-10.2) mg/dL Magnesium (1.6-2.3) mg/dL Total Bilirubin (0.2-1.3) mg/dL AST (17-59) U/L ALT (21-72) U/L Alkaline Phosphatase (38-126) U/L Total Creatine Kinase (55-170) U/L CK-MB (CK-2) (0.0-2.4) ng/mL CK-MB (CK-2) Rel Index Troponin I (0.000-0.034) ng/mL Total Protein (6.3-8.2) g/dL Albumin (3.5-5.0) g/dL Urine Opiates Screen Not Detected (NotDetected) Ur Oxycodone Screen Not Detected (NotDetected) Urine Methadone Screen Not Detected (NotDetected) Ur Propoxyphene Screen Not Detected (NotDetected) Ur Barbiturates Screen Not Detected (NotDetected) U Tricyclic Antidepress Not Detected (NotDetected) Ur Phencyclidine Scrn Not Detected (NotDetected) Ur Amphetamines Screen Not Detected (NotDetected) U Methamphetamines Scrn Not Detected (NotDetected) U Benzodiazepines Scrn Not Detected (NotDetected) Urine Cocaine Screen Not Detected (NotDetected) U Marijuana (THC) Screen Not Detected (NotDetected) Disposition Clinical Impression: Palpitations, Anxiety Disposition: HOME SELF-CARE Condition: Good Instructions: Heart Palpitations (ED), Generalized Anxiety Disorder (ED) Prescriptions: ALPRAZolam [Xanax] 0.5 mg PO BID PRN #6 tablet PRN Reason: Anxiety Is patient prescribed a controlled substance at d/c from ED?: Yes When asked, does pt state using other controlled substances?: No If prescribed controlled substance>3 days was MAPS reviewed?: Prescribed <3 Days Referrals: Beto Bueno MD [Primary Care Provider] - 1-2 days
[2017-12-28 11:15] LABS: Basophils % (A) 0 %; Eosinophils # (A) 0.2 k/uL (0-0.7); Eosinophils % (A) 3 %; HGB 14.4 gm/dL (13.0-17.5); Lymphocytes # (A) 2.1 k/uL (1.0-4.8); Lymphocytes % (A) 26 %; MCH 29.3 pg (25.0-35.0); MCHC 32.8 g/dL (31.0-37.0); MCV 89.4 fL (80.0-100.0); Mean Platelet Volume 7.1; Monocytes # (A) 0.4 k/uL (0-1.0); Monocytes % (A) 5 %; Neutrophils % (A) 64 %; Platelet Count 242 k/uL (150-450); RBC 4.92 m/uL (4.30-5.90); WBC 7.8 k/uL (3.8-10.6)
[2017-12-28 11:26] LABS: Partial Thromboplastin Time 22.8 sec (22.0-30.0); Prothrombin Time 10.1 sec (9.0-12.0)
[2017-12-28 11:28] LABS: ALT 59 U/L (21-72); AST 29 U/L (17-59); Albumin 4.4 g/dL (3.5-5.0); Alkaline Phosphatase 62 U/L (38-126); Anion Gap 9 mmol/L; Blood Urea Nitrogen 14 mg/dL (9-20); Calcium 9.8 mg/dL (8.4-10.2); Carbon Dioxide 25 mmol/L (22-30); Chloride 107 mmol/L (98-107); Glucose 99 mg/dL (74-99); Magnesium 1.9 mg/dL (1.6-2.3); Potassium 4.4 mmol/L (3.5-5.1); Sodium 141 mmol/L (137-145); Total Bilirubin 0.7 mg/dL (0.2-1.3); Total Protein 7.5 g/dL (6.3-8.2)
[2017-12-28 12:11] LABS: Creatine Kinase 60 U/L (55-170)
[2017-12-28 12:11] LABS: Amphetamine Screen,Urine Not Detected (NotDetected); Barbiturate Screen,Urine Not Detected (NotDetected); Benzodiazepines Screen,Urine Not Detected (NotDetected); Cocaine Screen,Urine Not Detected (NotDetected); Methadone Screen, Urine Not Detected (NotDetected); Opiate Screen,Urine Not Detected (NotDetected); Oxycodone Screen, Urine Not Detected (NotDetected); Phencyclidine Screen,Urine Not Detected (NotDetected); Tricyclic Antidepressant,Urine Not Detected (NotDetected); Urn Cannabinoid Scrn Not Detected (NotDetected)
[2017-12-28 12:25] LABS: Creatine Kinase MB 0.5 ng/mL (0.0-2.4); Troponin I <0.012 ng/mL (0.000-0.034)
--- NOTE | 2017-12-28 12:33 | XR ---
EXAMINATION TYPE: XR chest 2V DATE OF EXAM: 12/28/2017 HISTORY: dysrhythmia. REFERENCE: Previous study dated 09/04/2017. FINDINGS: The lungs are clear. Pleural spaces are clear. Heart size is normal. IMPRESSION: NO ACUTE INTRATHORACIC ABNORMALITY.
[2017-12-28 13:07] VITALS: BP 112/76; PULSE 65; RESP 18
== END 2017-12-28 13:05 | disposition home or self-care (01) ==
LOC: EC 10:22
DX: R00.2 Palpitations (principal); F41.9 Anxiety disorder, unspecified; R42 Dizziness and giddiness; I10 Essential (primary) hypertension; Z87.891 Personal history of nicotine dependence; Z79.899 Other long term (current) drug therapy
CPT/HCPCS: 36415; 93005; 80053; 82550; 82553; 83735; 84484; 85025; 85610; 85730; 80306; 71046; 99285; 96374; J2060

== ENCOUNTER 2018-01-28 02:44 | Emergency (ER) | payer BC ==
[2018-01-28 02:52] VITALS: RESP 18
--- NOTE | 2018-01-28 03:37 | ED ---
Abdominal Pain HPI - General Chief Complaint: Abdominal Pain Stated Complaint: Abd pain Time Seen by Provider: 01/28/18 03:10 Source: patient Mode of arrival: ambulatory Limitations: no limitations - History of Present Illness Initial Comments: Graham is a 52-year-old gentleman who presents to the emergency department today for evaluation of abdominal pain. Patient reports that he has had intermittent abdominal pain for the past year and a half. He's been evaluated in the emergency department for this in the past and no definitive diagnosis. 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 Patient reports that he's been experiencing 3 days of generalized crampy abdominal pain. Not associated with eating, no associated fevers or chills. He has had some mild constipation and believes his last bowel movement was 3 days ago. Has not had any vomiting. Denies any change in bladder habits. He describes the pain as a diffuse cramping throughout the entire abdomen. - Related Data Home Medications Medication Instructions Recorded Confirmed L.acidoph,Paracasei, B.lactis 1 cap PO DAILY 12/28/17 12/28/17 [Probiotic] Lisinopril [Zestril] 10 mg PO DAILY 12/28/17 12/28/17 Teddy Red 1 tab PO DAILY 12/28/17 12/28/17 Previous Rx's Medication Instructions Recorded ALPRAZolam [Xanax] 0.5 mg PO BID PRN #6 tablet 12/28/17 Allergies Allergy/AdvReac Type Severity Reaction Status Date / Time No Known Allergies Allergy Verified 01/28/18 02:52 Review of Systems ROS Statement: Those systems with pertinent positive or pertinent negative responses have been documented in the HPI. ROS Other: All systems not noted in ROS Statement are negative. Past Medical History Past Medical History: Hypertension History of Any Multi-Drug Resistant Organisms: None Reported Past Surgical History: Orthopedic Surgery Additional Past Surgical History / Comment(s): Left and right knee surgery; Oral surgery Past Anesthesia/Blood Transfusion Reactions: No Reported Reaction Past Psychological History: No Psychological Hx Reported Smoking Status: Current some day smoker Past Alcohol Use History: Occasional Past Drug Use History: None Reported General Exam - General Exam Comments Initial Comments: Physical Exam GENERAL: Patient is well-developed and well-nourished. Patient is nontoxic and well- hydrated and is in no distress. HENT: Normocephalic, Atraumatic. EYES: PERRL, EOMI PULMONARY: Unlabored respirations. No audible rales rhonchi or wheezing was noted. CARDIOVASCULAR: There is a regular rate and rhythm without any murmurs gallops or rubs. ABDOMEN: Soft and with normal bowel sounds. Mild tenderness to palpation in all quadrants, no peritoneal signs SKIN: Skin is clear with no lesions or rashes and otherwise unremarkable. : Deferred NEUROLOGIC: Patient is alert and oriented x3. Moving all extremities spontaneously MUSCULOSKELETAL: Normal extremities with adequate strength and full range of motion. No lower extremity swelling or edema. No calf tenderness. PSYCHIATRIC: Normal psychiatric evaluation. Limitations: no limitations Limitations: no limitations Course Vital Signs 01/28/18 01/28/18 02:48 04:50 Temperature 98.0 F 98 F Pulse Rate 61 77 Respiratory 18 18 Rate Blood Pressure 142/88 144/64 O2 Sat by Pulse 100 97 Oximetry Medical Decision Making - Medical Decision Making The patient was seen and evaluated, history was obtained from the patient Patient with intermittent episodes of severe abdominal pain. Has had 3 episodes of such over the past year and a half during which time he has been taking lisinopril and believes that these abdominal pain episodes are related to lisinopril Patient currently experiencing diffuse crampy abdominal pain as well as associated constipation Labs and imaging were ordered Ican abnormalities CT with no acute findings Results were discussed with the patient, patient still feels that he is likely having symptoms secondary to his lisinopril and plans to discontinue it. Advised patient I think this is acceptable plan and he can call his primary care physician Dr. Bueno later in the day today to discuss alternate antihypertensives. All shins pertaining care were answered best my ability patient was discharged home in stable condition - Lab Data Result diagrams: 01/28/18 03:03 01/28/18 03:03 Lab Results 01/28/18 01/28/18 Range/Units 03:03 03:03 WBC 12.1 H (3.8-10.6) k/uL RBC 5.17 (4.30-5.90) m/uL Hgb 15.1 (13.0-17.5) gm/dL Hct 46.7 (39.0-53.0) % MCV 90.2 (80.0-100.0) fL MCH 29.1 (25.0-35.0) pg MCHC 32.3 (31.0-37.0) g/dL RDW 12.9 (11.5-15.5) % Plt Count 298 (150-450) k/uL Neutrophils % 82 % Lymphocytes % 13 % Monocytes % 3 % Eosinophils % 1 % Basophils % 0 % Neutrophils # 9.9 H (1.3-7.7) k/uL Lymphocytes # 1.6 (1.0-4.8) k/uL Monocytes # 0.4 (0-1.0) k/uL Eosinophils # 0.1 (0-0.7) k/uL Basophils # 0.1 (0-0.2) k/uL Sodium 138 (137-145) mmol/L Potassium 4.6 (3.5-5.1) mmol/L Chloride 102 (98-107) mmol/L Carbon Dioxide 26 (22-30) mmol/L Anion Gap 10 mmol/L BUN 19 (9-20) mg/dL Creatinine 0.93 (0.66-1.25) mg/dL Est GFR (CKD-EPI)AfAm >90 (>60 ml/min/1.73 sqM) Est GFR (CKD-EPI)NonAf >90 (>60 ml/min/1.73 sqM) Glucose 146 H (74-99) mg/dL Calcium 10.2 (8.4-10.2) mg/dL Total Bilirubin 0.3 (0.2-1.3) mg/dL AST 26 (17-59) U/L ALT 63 (21-72) U/L Alkaline Phosphatase 69 (38-126) U/L Total Protein 8.0 (6.3-8.2) g/dL Albumin 4.8 (3.5-5.0) g/dL Amylase 62 (30-110) U/L Lipase 128 (23-300) U/L Disposition Clinical Impression: Abdominal pain Disposition: HOME SELF-CARE Condition: Stable Instructions: Abdominal Pain (ED) Is patient prescribed a controlled substance at d/c from ED?: No Referrals: Beto Bueno MD [Primary Care Provider] - 1-2 days
[2018-01-28 03:47] LABS: Basophils # (A) 0.1 k/uL (0-0.2); Basophils % (A) 0 %; Eosinophils # (A) 0.1 k/uL (0-0.7); Eosinophils % (A) 1 %; HCT 46.7 % (39.0-53.0); HGB 15.1 gm/dL (13.0-17.5); Lymphocytes # (A) 1.6 k/uL (1.0-4.8); Lymphocytes % (A) 13 %; MCH 29.1 pg (25.0-35.0); MCHC 32.3 g/dL (31.0-37.0); MCV 90.2 fL (80.0-100.0); Mean Platelet Volume 7.1; Monocytes # (A) 0.4 k/uL (0-1.0); Monocytes % (A) 3 %; Neutrophils # (A) 9.9 k/uL (1.3-7.7); Neutrophils % (A) 82 %; Platelet Count 298 k/uL (150-450); RBC 5.17 m/uL (4.30-5.90); RDW 12.9 % (11.5-15.5); WBC 12.1 k/uL (3.8-10.6)
[2018-01-28 03:58] LABS: ALT 63 U/L (21-72); AST 26 U/L (17-59); Albumin 4.8 g/dL (3.5-5.0); Alkaline Phosphatase 69 U/L (38-126); Amylase 62 U/L (30-110); Anion Gap 10 mmol/L; Blood Urea Nitrogen 19 mg/dL (9-20); Calcium 10.2 mg/dL (8.4-10.2); Carbon Dioxide 26 mmol/L (22-30); Chloride 102 mmol/L (98-107); Glucose 146 mg/dL (74-99); Lipase 128 U/L (23-300); Potassium 4.6 mmol/L (3.5-5.1); Sodium 138 mmol/L (137-145); Total Bilirubin 0.3 mg/dL (0.2-1.3)
--- NOTE | 2018-01-28 04:16 | CT ---
EXAMINATION TYPE: CT abdomen pelvis w con DATE OF EXAM: 01/28/2018 COMPARISON: 03/17/2016 HISTORY: abdominal pain CT DLP: 981.6 mGycm Automated exposure control for dose reduction was used. TECHNIQUE: Helical acquisition of images was performed from the lung bases through the pelvis. CONTRAST: Performed without Oral Contrast and with IV Contrast, patient injected with 100mL mL of Isovue 300. FINDINGS: Lung bases are clear of infiltrate. There is no pleural effusion. Heart size is normal. There is no p ericardial effusion. There are small hiatal hernia. The remainder of the stomach appears normal. Ther e are multiple small calcified gallstones. These are seen in the fundus and also the gallbladder neck . Liver shows no focal defect. Bile ducts are not dilated. Gallbladder is not dilated. Spleen appears normal. There is no pancreatic mass. There is no adrenal mass. Kidneys show satisfactory contrast opacification. There is no hydronephrosi s. There is no retroperitoneal adenopathy. Ureters are not dilated. Bladder distends smoothly. There is no inguinal hernia. There is no free fluid in the pelvis. There a re scattered colonic diverticula. There is no sign of diverticulitis. There is no mesenteric edema or adenopathy. There is no sign of free air. The appendix appears normal. The lumbar spine appears inta ct. There is no compression fracture. Bony pelvis appears intact. IMPRESSION: MULTIPLE SMALL CALCIFIED GALLSTONES ARE INCREASED SLIGHTLY COMPARED TO OLD EXAM. NORMAL APPENDIX. NO DILATED DUCTS.
[2018-01-28 05:09] VITALS: BP 144/64; PULSE 77; TEMP 98
== END 2018-01-28 04:50 | disposition home or self-care (01) ==
LOC: EC 02:44
DX: R10.84 Generalized abdominal pain (principal); K59.00 Constipation, unspecified; I10 Essential (primary) hypertension; F17.200 Nicotine dependence, unspecified, uncomplicated; Z79.899 Other long term (current) drug therapy
CPT/HCPCS: 36415; 80053; 82150; 83690; 85025; 74177; 99284; Q9967

== ENCOUNTER 2019-04-12 14:47 | Emergency (ER) | payer BC ==
[2019-04-12 14:54] VITALS: RESP 18; TEMP 97.9
[2019-04-12] MEDS ORDERED: HYDROcodone/APAP 7.5-325MG 1 EACH TAB PO ONE (15:03)
--- NOTE | 2019-04-12 15:36 | XR ---
EXAMINATION TYPE: XR ankle complete RT DATE OF EXAM: 04/12/2019 COMPARISON: NONE HISTORY: Knee pain ankle pain TECHNIQUE: 3 views FINDINGS: Ankle mortise is anatomic. There is fusion of the talonavicular joint. I see no fracture no r dislocation. Ankle joint space is fairly normal. IMPRESSION: No acute abnormality of the right ankle.
--- NOTE | 2019-04-12 15:37 | XR ---
EXAMINATION TYPE: XR knee complete RT DATE OF EXAM: 04/12/2019 COMPARISON: NONE HISTORY: Knee pain TECHNIQUE: 3 views FINDINGS: I see no fracture nor dislocation. There is calcification at the medial femoral condyle. Th ere is very small knee joint effusion. Joint spaces are fairly normal. IMPRESSION: No fracture. Calcification consistent with old injury. Small joint effusion.
--- NOTE | 2019-04-12 15:51 | ED ---
Lower Extremity Injury HPI - General Chief Complaint: Extremity Injury, Lower Stated Complaint: Fall Time Seen by Provider: 04/12/19 14:56 Source: patient Mode of arrival: ambulatory Limitations: no limitations - History of Present Illness Initial Comments: 53-year-old male presenting today for chief complaint of right knee right ankle pain. Patient states his history of right knee previous arthroscopy. Patient states that he slipped and fell on ice yesterday. Patient denies any head neck chest or abdomen trauma. Patient states that he slipped twisting knee and ankle inward. Denies dislocation. There is a significant swelling. Patient states the pain increases with ambulation. Denies any hip or back pain. Remaining review of systems negative upon arrival patient appears well no signs acute distress, other complaints - Related Data Home Medications Medication Instructions Recorded Confirmed L.acidoph,Paracasei, B.lactis 1 cap PO DAILY 12/28/17 12/28/17 [Probiotic] Lisinopril [Zestril] 10 mg PO DAILY 12/28/17 12/28/17 Teddy Red 1 tab PO DAILY 12/28/17 12/28/17 Previous Rx's Medication Instructions Recorded ALPRAZolam [Xanax] 0.5 mg PO BID PRN #6 tablet 12/28/17 Allergies Allergy/AdvReac Type Severity Reaction Status Date / Time No Known Allergies Allergy Verified 04/12/19 14:54 Review of Systems ROS Statement: Those systems with pertinent positive or pertinent negative responses have been documented in the HPI. ROS Other: All systems not noted in ROS Statement are negative. Past Medical History Past Medical History: Hypertension History of Any Multi-Drug Resistant Organisms: None Reported Past Surgical History: Orthopedic Surgery Additional Past Surgical History / Comment(s): Left and right knee surgery; Oral surgery Past Anesthesia/Blood Transfusion Reactions: No Reported Reaction Past Psychological History: Anxiety Smoking Status: Current every day smoker Past Alcohol Use History: Occasional Past Drug Use History: None Reported General Exam - General Exam Comments Initial Comments: General: The patient is awake and alert, in no distress Eye: +3 m pupils are equal, round and reactive to light, extra-ocular movements are intact. No nystagmus. There is normal conjunctiva bilaterally. No signs of icterus. Ears, nose, mouth and throat: There are moist mucous membranes and no oral lesions. No raccoon or Roberts sign of scalp hematomas. Neck: The neck is supple, there is no tenderness or JVD. No midline tenderness to palpation of the cervical spine Cardiovascular: There is a regular rate and rhythm. No murmur, rub or gallop is appreciated. Respiratory: Lungs are clear to auscultation, respirations are non-labored, breath sounds are equal. No wheezes, stridor, rales, or rhonchi. Musculoskeletal: Upon inspection of the right knee and ankle there is no stiff Soft Tissue Swelling or Ecchymosis. Patient Is Able to Fully Range of Both Joints However Complaints of Mild Discomfort. No Pain with Range Motion of the Right Hip. Tenderness over the Anterior Knee and the Medial Aspect of the Ankle Joint. Sensation Intact As Well As Strength +2 Dorsalis Pedis Pulses Equal and Person Bilaterally Neurological: A&O x 3. CN II-XII intact grossly, There are no obvious motor or sensory deficits. Coordination appears grossly intact. Speech is normal. Skin: Skin is warm and dry and no rashes or lesions are noted. Psychiatric: Cooperative, appropriate mood & affect, normal judgment. Limitations: no limitations Course Vital Signs 04/12/19 04/12/19 14:52 16:24 Temperature 97.9 F Pulse Rate 101 H 82 Respiratory 18 18 Rate Blood Pressure 125/77 131/73 O2 Sat by Pulse 98 96 Oximetry Medical Decision Making - Medical Decision Making 53-year-old male presenting today for chief complaint of right knee right ankle pain after fall on ice. imaging studies negative for osseous process. Patient neurovascularly intact. Able to ambulate Cannot rule out sprain or ligamentous injury. Patient is currently on crutches and recommended him continue this until he is a valid by orthopedic surgery. Discussed rice instruction patient v erbalized understanding, as well as the importance of follow-up. Discussed case with her provider patient was discharged appearing well. Disposition Clinical Impression: Fall due to ice or snow, Right knee injury, Right ankle strain Disposition: HOME SELF-CARE Condition: Good Instructions (If sedation given, give patient instructions): R.I.C.E. Treatment (ED) Additional Instructions: Please use medication as discussed. Please follow-up with family doctor in the next 2 days, use crutches for ambulation for comfort, if symptoms are persistent greater than 1 week i recommend orthopedic evaluation. Please return to emergency room if the symptoms increase or worsen or for any other concerns. Is patient prescribed a controlled substance at d/c from ED?: No Referrals: William Sharma DO [Primary Care Provider] - 1-2 days Martin Downs MD [STAFF PHYSICIAN] - 1-2 days Time of Disposition: 15:50
[2019-04-12 16:24] VITALS: BP 131/73; PULSE 82
== END 2019-04-12 16:29 | disposition home or self-care (01) ==
LOC: EC 14:47
DX: S96.911A Strain of unspecified muscle and tendon at ankle and foot level, right foot, initial encounter (principal); S89.91XA Unspecified injury of right lower leg, initial encounter; I10 Essential (primary) hypertension; F17.200 Nicotine dependence, unspecified, uncomplicated; Z79.899 Other long term (current) drug therapy; Z98.890 Other specified postprocedural states; W00.0XXA Fall on same level due to ice and snow, initial encounter; X50.1XXA Overexertion from prolonged static or awkward postures, initial encounter; Y92.009 Unspecified place in unspecified non-institutional (private) residence as the place of occurrence of the external cause
CPT/HCPCS: 99283; 29515; 73562; 73610; L4350